=== PATIENT | male | born 2000 | race Caucasian/White ===

== ENCOUNTER 2021-01-19 17:15 | Emergency (ER) | payer OTHER ==
[~2021-01-19 17:15] MED LIST: VIBRAMYCIN100 MG
[2021-01-19 17:24] VITALS: BP 150/93
== END 2021-01-19 18:34 | disposition home or self-care (01) ==
LOC: ED 17:15
DX: S06.0X0A Concussion without loss of consciousness, initial encounter (principal); F41.9 Anxiety disorder, unspecified; F17.200 Nicotine dependence, unspecified, uncomplicated; Z79.899 Other long term (current) drug therapy; W10.9XXA Fall (on) (from) unspecified stairs and steps, initial encounter; Y92.009 Unspecified place in unspecified non-institutional (private) residence as the place of occurrence of the external cause